=== PATIENT | female | born 1995 | race Caucasian/White ===

== ENCOUNTER 2021-09-14 07:02 | Day surgery (SDC) | payer BC ==
[~2021-09-14] VITALS: Ht 157.5 cm; Wt 72.7 kg
[~2021-09-14 07:02] MED LIST: AZTREONAM IV Push 1 GM VIAL. IVP ONE; CETI10TA74 PO; CLINDAMYCIN 900MG PREMIX 50 ML IV PRN; HYDROmorphone 2 MG/ML VIAL IVP PRN; IV RINGERS,LACTATED 1000ML 1,000 ML IV SCH; MORPHINE SULFATE 2 MG/ML INJ. IVP PRN; PROCHLORPERAZINE 10 MG/2 ML VIAL. IVP PRN; [UNRECOGNIZED DRUG - OTHER] PO; fentaNYL PF VIAL 100 MCG/2 ML VIAL IVP PRN
[2021-09-14] MEDS ORDERED: FERRIC SUBSULFATE 8 ML SOL.W.APPL TP ONE (07:08)
[2021-09-14] MEDS ORDERED: LIDOCAINE 1%/EPI 1:100,000 20 ML VIAL. ONE (07:09)
[2021-09-14 07:26] VITALS: BP 119/69
[2021-09-14] MEDS ORDERED: FAMOTIDINE 20 MG/2 ML VIAL ONE (08:12)
[2021-09-14] MEDS ORDERED: ONDANSETRON PF 4 MG/2 ML VIAL. ONE (08:12)
[2021-09-14] MEDS ORDERED: PROPOFOL 50 ML IV ONE (08:12)
[2021-09-14] MEDS ORDERED: DEXAMETHASONE SOD PHOS 20 MG/5 ML VIAL. ONE (08:12)
[2021-09-14] MEDS ORDERED: LIDOCAINE 2% PF 5 ML VIAL. ONE (08:12)
[2021-09-14] MEDS ORDERED: KETOROLAC 30 MG/ML VIAL. ONE (08:12)
[2021-09-14] MEDS ORDERED: PROPOFOL 10 MG/ML (20ML) VIAL. IV ONE (08:12)
[2021-09-14] MEDS ORDERED: MIDAZOLAM HCL/PF 2 MG/2 ML VIAL. ONE (08:13)
[2021-09-14] MEDS ORDERED: fentaNYL PF VIAL 100 MCG/2 ML VIAL ONE (08:14)
[2021-09-14] MEDS ORDERED: diphenhydrAMINE 50 MG/ML VIAL ONE (08:22)
[2021-09-14] MEDS ORDERED: SCOPOLAMINE 1.5MG PATCH. TD ONE (08:30)
[2021-09-14] MEDS ORDERED: PHENYLEPHRINE in 0.9% NACL PF 1 MG/10 ML SYRINGE. IV ONE (09:42)
[2021-09-14] MEDS ORDERED: SEVOFLURANE 16 TO 30 MINUTES. IH ONE (09:42)
--- NOTE | 2021-09-14 10:00 | PDOC ---
BRIEF OPERATIVE NOTE Date: Sep 14, 2021 Pre-Op Diagnosis 1. Dysmenorrhea 2. Dyspareunia 3. Imperforate Hymen Post-Op Diagnosis Same Procedure Performed Partial Hymenectomy Surgeon Dr. Rojas Anesthesia Type: General Blood Loss 10 ml Specimens Obtained vaginal mucosa Findings imperforate hymenal ring; no evidence vaginal septum Complications none Operative Note see dictation AMEENA ROJAS Jr, MD Sep 14, 2021 10:00
[2021-09-14] MEDS ORDERED: HYDR-2761 PO (10:02)
--- NOTE | 2021-09-14 10:04 | DISCH ---
DISCHARGE INSTRUCTIONS Condition on Discharge Condition on Discharge: Stable Activity After Discharge Activity Instructions for Disc: Activity as tolerated Lifting Instructions after Dis: No heavy lifting Driving Instructions after Dis: Do not drive today Diet after Discharge Diet after Discharge: Regular Wound Incision Care Other wound/incision instructi: No baths for 2 weeks. Contacting the DRMilagro after DC Call your doctor for: Concerns you may have Follow-Up Follow up with: Dr. Rojas in 1 week. AMEENA ROJAS Jr, MD Sep 14, 2021 10:04
[2021-09-14] MEDS ORDERED: HYDROcodone/APAP 5/325MG 1 TAB TABLET PO ONE (10:15)
--- NOTE | 2021-09-14 10:17 | OP ---
DATE OF SURGERY: 09/14/2021 PREOPERATIVE DIAGNOSES: 1. Dysmenorrhea. 2. Dyspareunia. 3. Imperforate hymen. POSTOPERATIVE DIAGNOSIS: 1. Dysmenorrhea. 2. Dyspareunia. 3. Imperforate hymen. PROCEDURE: Partial hymenectomy. SURGEON: Iam Rojas MD. ANESTHESIA: GETA. ESTIMATED BLOOD LOSS: 10 mL. COMPLICATIONS: None. FINDINGS: Imperforate hymenal ring. No evidence of vaginal septum. SUMMARY: A 26-year-old 0 with dysmenorrhea, dyspareunia and imperforate hymen, counseled on risks, benefits, and expectation of partial hymenectomy with the possibility of vaginal septum removal and voiced clear understanding to proceed. DESCRIPTION OF PROCEDURE: The patient was taken to surgery suite and placed in dorsal lithotomy position, was prepped with Betadine solution and draped in sterile fashion. After adequate anesthesia, pediatric speculum was placed. The imperforate hymenal ring was visualized. The vaginal vault was visualized, no evidence of vaginal septum. Cervix was visualized and appeared normal. About one-third of the hymenal ring was injected with 1% lidocaine with epinephrine and removed with a scalpel from the 4 o'clock to 7 o'clock position. This was repaired with interrupted suture of 3-0 chromic. The perineal body was very tight into the vaginal introitus affecting the hymenal ring as well, which a two Allis clamps were placed at the posterior fourchette, 1% lidocaine with epinephrine was injected between the two Allis clamps. A jake-shaped excision was performed to remove the small portion of the perineal body. This was reapproximated using 3-0 chromic suture in a continuous fashion, reapproximating the vaginal mucosa as well as the bulbospongiosus muscles and perineal body. The patient tolerated the procedure well and was taken to recovery room in stable condition. Sponge and needle count correct x 3. FARHAD DR: Tk TID: [id number]
[2021-09-14 10:32] VITALS: BP 109/80
--- NOTE | 2021-09-15 18:22 | PATHOLOGY ---
[facility] Accession Number: [id number] . 01 Material submitted: . vagina - VAGINAL MUCOSA . 01 Clinical history: . DYSMENORRHEA HYMEN IMPERFORATION PARTIAL HYMENECTOMY POSSIBLE VAGINAL SEPTUM REMOVAL . 02 Diagnosis: Segments of squamous mucosa and submucosa and skin and subcutaneous tissue, vaginal mucosa (partial hymenectomy): - Reactive epithelial hyperplasia of squamous mucosa and chronic inflammation, consistent with imperforate hymen. ([facility]; 09/15/2021) [facility] 09/15/2021 1708 Local . 02 Electronically signed: . Rudy Persaud MD, Pathologist NPI- [id number] . 01 Gross description: . The specimen is received in formalin, labeled "Adriana Ceja, vaginal mucosa". Received are multiple segments of light rush-pink mucosa measuring 2.0 x 0 1.0 x 0.2 cm in aggregate dimensions. The specimen is filtered and submitted entirely in cassette A1.([facility]; 09/14/2021) [facility] 09/14/2021 1537 Local . 02 Pathologist provided ICD-10: N76.1 . 02 CPT . 188860 Specimen Comment: A courtesy copy of this report has been sent to [phone], [phone] Specimen Comment: [id number] Specimen Comment: Report sent to / DR CRANDALL Specimen Comment: A duplicate report has been generated due to demographic updates. Performed at: 01 [facility] [address], [place] [id number] MD Evans Salazar MD Phone: [phone] Performed at: 02 [facility] [address], [place] [id number] MD Rudy Persaud MD Phone: [phone]
== END 2021-09-14 11:03 | disposition home or self-care (01) ==
LOC: SURG 07:02
PROVIDERS: ATTEND Obstetrics & Gynecology
DX: N94.6 Dysmenorrhea, unspecified (principal); N94.10 Unspecified dyspareunia; Q52.3 Imperforate hymen; N76.1 Subacute and chronic vaginitis; F41.9 Anxiety disorder, unspecified; Z90.49 Acquired absence of other specified parts of digestive tract; Z98.890 Other specified postprocedural states; Z79.899 Other long term (current) drug therapy; Z88.0 Allergy status to penicillin; Z88.2 Allergy status to sulfonamides; Z72.89 Other problems related to lifestyle
CPT/HCPCS: 56700; 81025; A4930; A6222; J1100; J1200; J1885; J2370; J2405; J2704; J3010; J3490; 88305; A4351; J2250